=== PATIENT | male | born 1950 | race Caucasian/White ===

== ENCOUNTER → 2020-03-25 | Outpatient (CLI) | payer MEDICARE, OTHER ==
[2020-03-25 09:48] LABS: BASO % 1 % (0-3); EOS # 0.2 x10^3/uL (0.0-0.7); EOS % 5 % (0-3); HEMATOCRIT 44.1 % (39.0-53.0); HEMOGLOBIN 15.4 g/dL (13.0-17.5); LYMPH # 1.2 x10^3/uL (1.0-4.8); LYMPH % 30 % (24-48); MEAN CORPUSCULAR HEMOGLOBIN 36 pg (25-35); MEAN CORPUSCULAR HGB CONC 35 g/dL (31-37); MEAN CORPUSCULAR VOLUME 102 fL (79-100); MONO # 0.4 x10^3/uL (0.0-1.1); MONO % 11 % (0-9); NEUT # 2.1 x10^3uL (1.8-7.7); NEUT % 53 % (31-73); PLATELET COUNT 181 x10^3/uL (140-400); RED BLOOD COUNT 4.34 x10^6/uL (4.30-5.70); RED CELL DISTRIBUTION WIDTH 12.8 % (11.5-14.5); WHITE BLOOD COUNT 3.9 x10^3/uL (4.0-11.0)
[2020-03-25 10:04] LABS: ALBUMIN 3.5 g/dL (3.4-5.0); ALBUMIN/GLOBULIN RATIO 1.2 (1.0-1.7); CALCIUM 8.9 mg/dL (8.5-10.1); CREATININE 1.2 mg/dL (0.7-1.3); GFR 59.9; TOTAL BILIRUBIN 0.7 mg/dL (0.2-1.0); TOTAL PROTEIN 6.4 g/dL (6.4-8.2)
[2020-03-25 16:29] LABS: THYROID STIM HORMONE (TSH) 2.576 uIU/mL (0.358-3.740)
[2020-03-27 14:07] LABS: FREE PSA/PSA RATIO 18.6 % (.); PSA FREE 1.06 ng/mL; PSA TOTAL 5.7 ng/mL (0.0-4.0)
== END | disposition home or self-care (01) ==
LOC: LAB 08:44
PROVIDERS: ATTEND Family Medicine
DX: I10 Essential (primary) hypertension (principal); E78.1 Pure hyperglyceridemia; E03.9 Hypothyroidism, unspecified; R97.20 Elevated prostate specific antigen [PSA]
CPT/HCPCS: 36415; 80053; 80061; 84153; 84154; 84443; 85025

== ENCOUNTER → 2020-03-25 | Outpatient (CLI) | payer MEDICARE, OTHER | END | disposition home or self-care (01) | LOC: LAB 08:51 | PROVIDERS: ATTEND Urology | DX: R97.20 Elevated prostate specific antigen [PSA] (principal) | CPT/HCPCS: 84153; G0103 ==

== ENCOUNTER 2022-03-09 13:38 | Emergency (ER) | payer MEDICARE, OTHER ==
[~2022-03-09] VITALS: Ht 185.4 cm; Wt 103.0 kg
--- NOTE | 2022-03-09 14:07 | PHYS DOC ---
Past History Additional Past Medical Histor: enlarged prostate, seasonal allergies. Past Surgical History: Hip Replacement, Other Additional Past Surgical Histo: ORIF ankle, hernia repair General Adult EDM: Chief Complaint: ABDOMINAL PAIN HPI: HPI: Patient is a 71-year-old male who presents to the emergency department for left lower quadrant pain that radiates to his left flank that started this afternoon. He rates his pain 7 out of 10. Describes pain as a constant pain. No t reatment prior to arrival. Patient reports history of kidney stones, bradycardia, enlarged prostate. He denies nausea, vomiting, diarrhea, fevers, hematuria or dysuria. Review of Systems: Review of Systems: Constitutional: see HPI GI: see HPI :see HPI Musculoskeletal: see HPI Allergies: Allergies: Allergies Coded Allergies Type Severity Reaction Last Updated Verified No Known Drug Allergies 03/09/22 No Physical Exam: PE: Constitutional: Well developed, well nourished, no acute distress, non-toxic appearance. [] HENT: Normocephalic, atraumatic, bilateral external ears normal, oropharynx moist, no oral exudates, nose normal. [] Eyes: PERRL, EOMI, conjunctiva normal, no discharge. [] Neck: Normal range of motion, no stridor Cardiovascular:Heart rate bradycardic rhythm, no murmur [] Lungs & Thorax: Bilateral breath sounds clear to auscultation [] Abdomen: Bowel sounds normal, soft, lower quadrant tenderness with palpation, negative Mcbride sign, no rebound tenderness, no abdominal guarding or rigidity,, no masses, no pulsatile masses. [] Skin: Warm, dry, no erythema, no rash. [] Back: No tenderness, no CVA tenderness. [] Extremities: No tenderness, no cyanosis, no clubbing, ROM intact, no edema. [] Neurologic: Alert and oriented X 3, normal motor function, normal sensory function, no focal deficits noted. [] Psychologic: Affect normal, judgement normal, mood normal. [] Current Patient Data: Labs: Laboratory Tests Test 03/09/22 14:13 03/09/22 15:30 White Blood Count 8.0 x10^3/uL Red Blood Count 4.36 x10^6/uL Hemoglobin 15.1 g/dL Bedside Hemoglobin 15 gm/dL Hematocrit 44.8 % Bedside Hematocrit 44 % Mean Corpuscular Volume 103 fL Mean Corpuscular Hemoglobin 35 pg Mean Corpuscular Hemoglobin Concent 34 g/dL Red Cell Distribution Width 13.3 % Platelet Count 197 x10^3/uL Neutrophils (%) (Auto) 80 % Lymphocytes (%) (Auto) 14 % Monocytes (%) (Auto) 5 % Eosinophils (%) (Auto) 0 % Basophils (%) (Auto) 1 % Neutrophils # (Auto) 6.4 x10^3uL Lymphocytes # (Auto) 1.1 x10^3/uL Monocytes # (Auto) 0.4 x10^3/uL Eosinophils # (Auto) 0.0 x10^3/uL Basophils # (Auto) 0.0 x10^3/uL Bedside Sodium 140 mmol/L Sodium Level 140 mmol/L Bedside Potassium 4.3 mmol/L Potassium Level 4.4 mmol/L Bedside Chloride 107 mmol/L Chloride Level 107 mmol/L Carbon Dioxide Level 22 mmol/L Bedside Total CO2 23 mmol/L Anion Gap 15 mmol/L Bedside Blood Urea Nitrogen 27 mg/dL Blood Urea Nitrogen 23 mg/dL Creatinine 1.2 mg/dL Bedside Creatinine 1.2 mg/dL Estimated GFR (Cockcroft-Gault) 59.5 BUN/Creatinine Ratio 19 Glucose Level 128 mg/dL Calcium Level 9.1 mg/dL Bedside Ionized Calcium (Emily) 1.23 mmol/L Total Bilirubin 0.7 mg/dL Aspartate Amino Transf (AST/SGOT) 20 U/L Alanine Aminotransferase (ALT/SGPT) 33 U/L Alkaline Phosphatase 76 U/L Total Protein 6.3 g/dL Albumin 3.5 g/dL Albumin/Globulin Ratio 1.3 Lipase 86 U/L Urine Collection Type Unknown Urine Color Yellow Urine Clarity Clear Urine pH 6.0 Urine Specific [place] >=1.030 Urine Protein Neg Urine Glucose (UA) Neg mg/dL Urine Ketones (Stick) 40 mg/dL Urine Blood Mod Urine Nitrite Neg Urine Bilirubin Neg Urine Urobilinogen Dipstick 0.2 mg/dL Urine Leukocyte Esterase Neg Urine RBC 11-20 /HPF Urine WBC Occ /HPF Urine Squamous Epithelial Cells Occ /LPF Urine Bacteria 0 /HPF Urine Mucus Slight /LPF Current Medications Medications (Trade) Dose Ordered Sig/Cora Route PRN Reason Start Time Stop Time Status Last Admin Dose Admin Sodium Chloride 1,000 ml @ 1,000 mls/hr Q1H IV 03/09/22 14:15 03/09/22 15:14 DC 03/09/22 14:14 Fentanyl Citrate (Fentanyl 2ml Vial) 50 mcg 1X ONCE IVP 03/09/22 14:15 03/09/22 14:16 DC 03/09/22 14:18 Ondansetron HCl (Zofran) 4 mg 1X ONCE IVP 03/09/22 14:15 03/09/22 14:16 DC 03/09/22 14:16 Fentanyl Citrate (Fentanyl 2ml Vial) 50 mcg 1X ONCE IVP 03/09/22 15:00 03/09/22 15:01 DC 03/09/22 14:53 Ketorolac Tromethamine (Toradol 30mg Vial) 30 mg 1X ONCE IVP 03/09/22 16:15 03/09/22 16:16 Morphine Sulfate (Morphine 2mg Syringe) 2 mg 1X ONCE IV 03/09/22 16:15 03/09/22 16:16 Vital Signs: Vital Signs Date Time Temp Pulse Resp B/P (MAP) Pulse Ox O2 Delivery O2 Flow Rate FiO2 03/09/22 13:40 97.5 44 22 136/75 (95) 94 Room Air EKG: EKG: [] Radiology/Procedures: Radiology/Procedures: []PROCEDURE: CT ABDOMEN PELVIS WO CONTRAST CT ABDOMEN+PELVIS WO History: Left lower quadrant pain that radiates to flank. Comparison: None. Technique: CT abdomen and pelvis without contrast. Findings: Dependent changes in the lung bases. No pleural effusion or pneumothorax. The liver, gallbladder, spleen and adrenal glands are within normal limits. Mild fatty atrophy in the pancreas. There is moderate left hydronephrosis and left perinephric inflammatory changes with a obstructing 6 mm left ureteropelvic junction stone. No hydroureter. Multiple additional bilateral nephroliths measuring 3-6 mm. No right hydronephrosis. The bladder demonstrates mild diffuse wall thickening. There is marked enlargement of the prostate gland measuring 7-8 cm diameter. The stomach and small bowel are unremarkable. There is mild colonic diverticulosis without evidence of diverticulitis. The unenhanced vasculature demonstrates tortuous mildly calcified aorta and iliac arteries. No aneurysm. There is no adenopathy. No free air or free fluid. Small fat-containing umbilical and supraumbilical ventral hernias. Multilevel degenerative changes in the spine. Left total hip arthroplasty without evidence of complication. Impression: 1. Left ureteropelvic junction stone measuring 6 mm causing moderate left hydronephrosis. 2. Multiple additional bilateral nephrolithiasis. 3. Marked prostatomegaly. Correlate with exam. ------ Exposure: One or more of the following individualized dose reduction techniques were utilized for this examination: 1. Automated exposure control 2. Adjustment of the mA and/or kV according to patient size 3. Use of iterative reconstruction technique. Electronically signed by: Bala Stevenson MD (03/09/2022 2:57 PM) [id number] DICTATED AND SIGNED BY: BALA STEVENSON MD DATE: 03/09/22 [id number] CC: JOANNA COLE MD; SYDNIE KAPADIA APRN ~ Heart Score: C/O Chest Pain: N/A Risk Factors: Risk Factors: DM, Current or recent (<one month) smoker, HTN, HLP, family history of CAD, obesity. Risk Scores: Score 0 - 3: 2.5% MACE over next 6 weeks - Discharge Home Score 4 - 6: 20.3% MACE over next 6 weeks - Admit for Clinical Observation Score 7 - 10: 72.7% MACE over next 6 weeks - Early Invasive Strategies Course & Med Decision Making: Course & Med Decision Making Pertinent Labs and Imaging studies reviewed. (See chart for details) Work-up in the ER consisted of blood work including lipase, urinalysis and CT imaging of abdomen and pelvis without contrast due to national shortage and patient's history of kidney stones. Patient's lab work and renal function is unremarkable. Patient's urinalysis does not show any urinary tract infection. Patient's pain is controlled. Pat ient CT imaging of his abdomen and pelvis shows a 6 mm stone in the left UPJ with moderate hydro. Patient will be discharged home with pain medication and Flomax. He is given urology follow-up. I discussed with patient all findings and diagnostic testing as well as the need to follow-up with PCP for further evaluation and treatment or return to the ER if any new or worsening symptoms. Strict return precautions were also discussed at length. Patient voiced understanding and agreement with the plan. Patient is hemodynamically stable at the time of disposition. Dragon Disclaimer: Dragon Disclaimer: This electronic medical record was generated, in whole or in part, using a voice recognition dictation system. Departure Departure: Impression: Primary Impression: Kidney stone Disposition: HOME / SELF CARE / HOMELESS Condition: GOOD Referrals: JOANNA COLE MD (PCP) Patient Instructions: Kidney Stones Additional Instructions: You are seen in the emergency department today for abdominal pain you are noted to have a left kidney stone. You are being discharged home with pain medication. This medication is hydrocodone and Tylenol in the combination tablet. This medication may cause sedation so do not take when you need to be alert, driving a vehicle or with alcohol. You are being discharged home with a pain medication called Flomax. This will dilate the ureter to help the stone pass. Please monitor your urine for passage of the stone. I would advise you to follow-up with a urologist if your pain persist. You can contact Dr. Newberry with urology at [phone]. Return to this emergency department or go to [facility] where they have urology coverage if you develop worsening of your pain, decreased urine output, increased blood in your urine, high fevers refractory to treatment, intractable nausea or vomiting or any new or worsening concerns. Scripts Ondansetron (ONDANSETRON ODT) 4 Mg Tab.rapdis 1 TAB PO PRN Q6-8HRS for nausea for 7 Days, #28 TAB 0 Refills Prov: SYDNIE KAPADIA APRN 03/09/22 Tamsulosin Hcl (FLOMAX) 0.4 Mg Cap.er.24h 1 CAP PO DAILY for kidney stone for 10 Days, #10 CAP 0 Refills Prov: SYDNIE KAPADIA [employer] 03/09/22 Hydrocodone Bit/Acetaminophen (HYDROCODONE-APAP 5-325 ) 1 Each Tablet 1 TAB PO PRN Q6HRS PRN for PAIN for 2 Days, #8 TAB 0 Refills Prov: SYDNIE KAPADIA [employer] 03/09/22 SYDNIE KAPADIA [employer] March 09, 2022 14:07
[2022-03-09] MEDS ORDERED: IV NORMAL SALINE 1,000ML 1,000 ML IV SCH (14:15)
[2022-03-09] MEDS ORDERED: ONDANSETRON PF 4 MG/2 ML VIAL. IVP ONE (14:15)
[2022-03-09 14:32] LABS: BASO % 1 % (0-3); EOS % 0 % (0-3); HEMATOCRIT 44.8 % (39.0-53.0); HEMOGLOBIN 15.1 g/dL (13.0-17.5); LYMPH # 1.1 x10^3/uL (1.0-4.8); LYMPH % 14 % (24-48); MEAN CORPUSCULAR HEMOGLOBIN 35 pg (25-35); MEAN CORPUSCULAR HGB CONC 34 g/dL (31-37); MEAN CORPUSCULAR VOLUME 103 fL (79-100); MONO # 0.4 x10^3/uL (0.0-1.1); MONO % 5 % (0-9); NEUT # 6.4 x10^3uL (1.8-7.7); NEUT % 80 % (31-73); PLATELET COUNT 197 x10^3/uL (140-400); RED BLOOD COUNT 4.36 x10^6/uL (4.30-5.70); RED CELL DISTRIBUTION WIDTH 13.3 % (11.5-14.5)
[2022-03-09 14:52] LABS: POTASSIUM ISTAT 4.3 mmol/L (3.5-5.0)
--- NOTE | 2022-03-09 14:59 | RAD ---
CT ABDOMEN+PELVIS WO History: Left lower quadrant pain that radiates to flank. Comparison: None. Technique: CT abdomen and pelvis without contrast. Findings: Dependent changes in the lung bases. No pleural effusion or pneumothorax. The liver, gallbladder, spl een and adrenal glands are within normal limits. Mild fatty atrophy in the pancreas. There is moderate left hydronephrosis and left perinephric inflammatory changes with a obstructing 6 mm left ureteropelvic junction stone. No hydroureter. Multiple additional bilateral nephroliths measu ring 3-6 mm. No right hydronephrosis. The bladder demonstrates mild diffuse wall thickening. There is marked enlargement of the prostate gland measuring 7-8 cm diameter. The stomach and small bowel are unremarkable. There is mild colonic diverticulosis without evidence o f diverticulitis. The unenhanced vasculature demonstrates tortuous mildly calcified aorta and iliac a rteries. No aneurysm. There is no adenopathy. No free air or free fluid. Small fat-containing umbilic al and supraumbilical ventral hernias. Multilevel degenerative changes in the spine. Left total hip a rthroplasty without evidence of complication. Impression: 1. Left ureteropelvic junction stone measuring 6 mm causing moderate left hydronephrosis. 2. Multiple additional bilateral nephrolithiasis. 3. Marked prostatomegaly. Correlate with exam. ------ Exposure: One or more of the following individualized dose reduction techniques were utilized for thi s examination: 1. Automated exposure control 2. Adjustment of the mA and/or kV according to patient size 3. Use of iterative reconstruction technique. Electronically signed by: Bala Allen MD (03/09/2022 2:57 PM) [id number]
[2022-03-09 15:36] LABS: CALCIUM 9.1 mg/dL (8.5-10.1); CREATININE 1.2 mg/dL (0.7-1.3); GFR 59.5; POTASSIUM 4.4 mmol/L (3.5-5.1)
[2022-03-09 15:41] LABS: ALBUMIN 3.5 g/dL (3.4-5.0); ALBUMIN/GLOBULIN RATIO 1.3 (1.0-1.7); TOTAL BILIRUBIN 0.7 mg/dL (0.2-1.0); TOTAL PROTEIN 6.3 g/dL (6.4-8.2)
[2022-03-09 16:07] LABS: CLARITY,URINE CLEAR; COLOR,URINE YELLOW; GLUCOSE,URINE NEG (NEG)
[2022-03-09 16:08] LABS: BACTERIA,URINE 0 /HPF (0-FEW); NITRITE,URINE NEG (NEG); SQUAMOUS EPITHELIAL CELL,UR OCC /LPF; UROBILINOGEN,URINE 0.2 mg/dL (0.2 mg/dL); WBC,URINE OCC /HPF (0-4)
[2022-03-09] MEDS ORDERED: KETOROLAC 30 MG/ML VIAL. IVP ONE (16:15)
[2022-03-09] MEDS ORDERED: MORPHINE SULFATE 2 MG/ML DISP.SYRIN. IV ONE (16:15)
[2022-03-09] MEDS ORDERED: HYDR-2155 PO (16:21)
[2022-03-09] MEDS ORDERED: TAMS0.4C97 PO (16:21)
[2022-03-09 16:50] VITALS: BP 112/70
[2022-03-09] MEDS ORDERED: ONDA4TAB12 PO (16:53)
== END 2022-03-09 17:00 | disposition home or self-care (01) ==
LOC: ER 13:38
DX: N13.2 Hydronephrosis with renal and ureteral calculous obstruction (principal)
CPT/HCPCS: 36415; 74176; 80047; 80053; 81001; 83690; 85025; 96361; 96374; 96375; 96376; 99285; J1885; J2270; J2405; J3010; J7030